=== PATIENT | male | born 1940 | race Caucasian/White ===

== ENCOUNTER → 2016-10-21 | Outpatient (CLI) | payer OTHER ==
[2015-10-08 10:19] VITALS: BP 126/65
--- NOTE | 2016-10-21 11:01 | RAD ---
Lumbar spine, five views Indication: Followup compression fracture Comparison: None Findings: The bones are severely osteopenic. Given these limitations, there is an age indeterminate compression fracture of the L1 vertebral body with approximately 75% height loss. A compression frac ture of the T11 vertebral body with 50-75% height loss is also seen. No significant retropulsion is appreciated. Remaining vertebral body heights appear maintained. There is moderate multilevel degene rative disc disease and facet arthropathy, greatest caudally. There is moderate aortoiliac atherosclerotic disease with aneurysmal dilatation of the abdominal aor ta, measuring 3.2 cm in maximum AP diameter. Multiple rounded densities projecting over the right he miabdomen are nonspecific but appear external to the patient on the lateral views. Impression: 1. Advanced osteopenia with age-indeterminate compression fractures of the T11 and L1 vertebral bodi es, as detailed above. 2. 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 Reported By:
== END ==
LOC: RAD 09:03
PROVIDERS: ATTEND Specialist
DX: S32.010A Wedge compression fracture of first lumbar vertebra, initial encounter for closed fracture (principal); X58.XXXA Exposure to other specified factors, initial encounter
CPT/HCPCS: 72110